=== PATIENT | male | born 1975 | race Two or more races ===

== ENCOUNTER 2021-06-22 12:00 | Emergency (ER) | payer OTHER ==
[~2021-06-22] VITALS: Ht 175.3 cm; Wt 92.1 kg
[2021-06-22] MEDS ORDERED: ATORVASTATIN CA10 MG PO (12:38)
[2021-06-22] MEDS ORDERED: COZAAR50 MG PO (12:38)
[2021-06-22] MEDS ORDERED: NIFEDIPINE ER60 M1 PO (12:38)
== END 2021-06-22 17:36 | disposition home or self-care (01) ==
LOC: ER 12:00
DX: R10.9 Unspecified abdominal pain (principal); K76.0 Fatty (change of) liver, not elsewhere classified; N20.0 Calculus of kidney
CPT/HCPCS: 74177; Q9965